=== PATIENT | female | born 1950 ===

== ENCOUNTER → 2021-07-25 08:00 | Outpatient (CLI) | payer OTHER ==
[~2021-07-25 08:00] MED LIST: ACID REDUCER20 M1 PO
== END | disposition home or self-care (01) ==
LOC: LAB 08:00 → ADM 12:30 → CIR.AMB 07-28 12:30 → EDSTATUS 07-28 12:30
PROVIDERS: ATTEND Obstetrics & Gynecology Obstetrics
DX: R87.618 Other abnormal cytological findings on specimens from cervix uteri (principal)

== ENCOUNTER 2021-09-22 08:11 | Day surgery (SDC) | payer OTHER ==
[~2021-09-22 08:11] MED LIST changes: +HYZAAR 100-251 EACH PO; +LIPITOR20 MG PO; +TOPROL XL25 M1 PO
== END 2021-09-22 16:05 | disposition home or self-care (01) ==
LOC: CIR.AMB 08:11
PROVIDERS: ATTEND Obstetrics & Gynecology Obstetrics
DX: N88.8 Other specified noninflammatory disorders of cervix uteri (principal); N87.9 Dysplasia of cervix uteri, unspecified

== ENCOUNTER 2023-01-08 12:00 | Inpatient (IN) | payer OTHER ==
[~2023-01-08] VITALS: Ht 157.5 cm; Wt 68.9 kg
== END 2023-01-14 13:00 | disposition home or self-care (01) | DRG 743 ==
LOC: EDSTATUS 01-11 12:00 → SURH 01-11 12:00 → OB/GYN 01-11 12:00 → AMB-ENDOS 01-11 12:00 → O/R 01-11 14:24 → OB/GYN 01-11 14:24
PROVIDERS: ADMIT Obstetrics & Gynecology Obstetrics; ATTEND Obstetrics & Gynecology Obstetrics
PROC: 0UT70ZZ Resection of Bilateral Fallopian Tubes, Open Approach (ICD-10-PCS; 2023-01-11)
PROC: 0UT20ZZ Resection of Bilateral Ovaries, Open Approach (ICD-10-PCS; 2023-01-11)
PROC: 0UT90ZZ Resection of Uterus, Open Approach (ICD-10-PCS; principal; 2023-01-11 20:45)
DX: N87.0 Mild cervical dysplasia (principal); N80.03 Adenomyosis of the uterus; Z20.822 Contact with and (suspected) exposure to COVID-19